=== PATIENT | female | born 1940 | race Caucasian/White ===

== ENCOUNTER 2021-01-29 10:33 | Inpatient (IN) | payer MEDICARE ==
[2021-01-29] MEDS ORDERED: Nitroglycerin 2% Ointment 1 INCH/1 GM Packet ONE (11:07)
[2021-01-29 11:46] LABS: #Eosinphils 0.1 10x3/uL (0.0-0.5); #Monocytes 0.5 10x3/uL (0.0-1.1); #Neutrophils 4.6 10x3/uL (1.5-8.4); %Basophils 0.7 % (0.0-2.0); %Eosinophils 2.3 % (0.0-6.0); %Lymphocytes 12.5 % (18.0-47.0); %Monocytes 8.2 % (0.0-10.0); Hemoglobin 13.5 g/dL (12.0-15.5); Mean Corpuscular Hemoglobin 28.7 pg (27.0-33.0); Mean Corpuscular Volume 86.8 fl (81.6-98.3); Mean Platelet Volume 10.4 fl (7.4-10.4); Platelet Count 252 10x3/uL (150-450); RBC Distribution Width 13.2 % (11.5-14.5); Red Blood Cell (RBC) Count 4.71 10x6/uL (3.90-5.03)
[2021-01-29 12:03] LABS: ALT (SGPT) 12 U/L (8-55); AST (SGOT) 19 U/L (5-34); Albumin 4.2 g/dL (3.4-4.8); Alkaline Phosphatase 86 U/L (40-110); Anion Gap 15 mmol/L (10-20); BUN (Urea Nitrogen) 10 mg/dL (9.8-20.1); Bilirubin, Total 0.4 mg/dL (0.2-1.2); CK (CPK) 80 U/L (29-168); Calc. Creatinine Clearance 0 mL/min (70-130); Calcium 9.1 mg/dL (7.8-10.44); Carbon Dioxide 24 mmol/L (23-31); Chloride 93 mmol/L (98-107); Globulin 3.8 g/dL (2.4-3.5); Glucose 95 mg/dL (83-110); Potassium 4.3 mmol/L (3.5-5.1); Sodium 128 mmol/L (136-145)
[2021-01-29 12:06] LABS: PTT 25.2 sec (22.0-33.0); Prothrombin Time 10.9 sec (9.5-12.1)
[2021-01-29] MEDS ORDERED: Aspirin Chewable 81 MG TAB ONE (14:05)
[2021-01-29] MEDS ORDERED: hydrALAZINE 20 MG/ML VIAL SLOW IVP PRN (15:00)
[2021-01-29 15:11] VITALS: BMI 23.9
[2021-01-29] MEDS ORDERED: Sodium Chloride 0.9% 1,000 ML IV SCH (16:45)
[2021-01-29] MEDS: Atorvastatin Calcium 40 MG TAB PO SCH (20:21)
[2021-01-29] MEDS: CARBAMAZEPINE 300 MG PO SCH (20:22)
[2021-01-29] MEDS: Gabapentin 300 MG CAP PO SCH (20:22)
[2021-01-30 05:07] LABS: #Eosinphils 0.2 10x3/uL (0.0-0.5); #Monocytes 0.5 10x3/uL (0.0-1.1); #Neutrophils 2.8 10x3/uL (1.5-8.4); %Basophils 0.9 % (0.0-2.0); %Eosinophils 4.1 % (0.0-6.0); %Lymphocytes 18.7 % (18.0-47.0); %Monocytes 12.4 % (0.0-10.0); %Neutrophils 63.7 % (40.0-75.0); Hemoglobin 12.3 g/dL (12.0-15.5); Mean Corpuscular HGB CONC 33.3 g/dL (32.0-36.0); Mean Corpuscular Hemoglobin 28.5 pg (27.0-33.0); Mean Corpuscular Volume 85.6 fl (81.6-98.3); Mean Platelet Volume 10.3 fl (7.4-10.4); Platelet Count 245 10x3/uL (150-450); RBC Distribution Width 13.1 % (11.5-14.5); Red Blood Cell (RBC) Count 4.31 10x6/uL (3.90-5.03); White Blood Cell (WBC) Count 4.3 10x3/uL (3.5-10.5)
[2021-01-30 05:28] LABS: Anion Gap 12 mmol/L (10-20); BUN (Urea Nitrogen) 10 mg/dL (9.8-20.1); Calc. Creatinine Clearance 57 mL/min (70-130); Calcium 8.7 mg/dL (7.8-10.44); Carbon Dioxide 25 mmol/L (23-31); Cardiac Risk 2.2 (Less than 4.5); Chloride 97 mmol/L (98-107); Cholesterol 222 mg/dl (< 200 Desired); Glucose 91 mg/dL (83-110); HDL Cholesterol 102 mg/dL (>60 Neg Risk); LDL Cholesterol, Calculated 106 mg/dL; Potassium 3.8 mmol/L (3.5-5.1); Sodium 130 mmol/L (136-145); Triglycerides 71 mg/dL (Less than 150)
[2021-01-30 06:59] LABS: SARS-CoV-2 PCR by NAA Not Detected (NotDetected)
[2021-01-30] MEDS ORDERED: Aspirin 325 mg Enteric Coated Tablet PO SCH (09:00)
[2021-01-30] MEDS: Enoxaparin Sodium 40 MG/0.4 ML SYRINGE SC SCH ×2 (09:24→10:00)
[2021-01-30] MEDS: Clopidogrel Bisulfate 75 MG TAB PO SCH (09:24)
[2021-01-30] MEDS: Aspirin 81 mg Enteric Coated Tablet PO SCH (09:24)
[2021-01-30] MEDS: Gabapentin 300 MG CAP PO SCH ×2 (09:24→21:11)
[2021-01-30] MEDS: Amlodipine 5 MG TAB PO SCH (09:24)
[2021-01-30] MEDS: CARBAMAZEPINE 300 MG PO SCH ×2 (09:48→21:14)
[2021-01-30] MEDS: Atorvastatin Calcium 40 MG TAB PO SCH (21:11)
[2021-01-31] MEDS: Gabapentin 300 MG CAP PO SCH (09:33)
[2021-01-31] MEDS: Clopidogrel Bisulfate 75 MG TAB PO SCH (09:34)
[2021-01-31] MEDS: Enoxaparin Sodium 40 MG/0.4 ML SYRINGE SC SCH (09:35)
[2021-01-31] MEDS: Aspirin 81 mg Enteric Coated Tablet PO SCH (09:35)
[2021-01-31] MEDS: Amlodipine 5 MG TAB PO SCH (09:35)
[2021-01-31] MEDS: CARBAMAZEPINE 300 MG PO SCH (09:35)
[2021-01-31] MEDS ORDERED: hydrALAZINE 20 MG/ML VIAL SLOW IVP PRN (13:53)
[2021-01-31] MEDS: Carvedilol 12.5 MG TAB PO SCH ×2 (14:29→16:44)
[2021-01-31] MEDS ORDERED: hydrALAZINE 25 MG TAB PO SCH (15:00)
[2021-01-31 17:23] VITALS: TEMP 98.2
[2021-01-31 18:35] VITALS: BP 155/79
== END 2021-01-31 18:30 | disposition home or self-care (01) | DRG 65 ==
LOC: CSHERS 10:33 → CSHTELE 13:45
PROVIDERS: ADMIT Hospitalist; ATTEND Hospitalist
DX: I63.81 Other cerebral infarction due to occlusion or stenosis of small artery (principal); E87.1 Hypo-osmolality and hyponatremia; Z20.822 Contact with and (suspected) exposure to COVID-19; G83.24 Monoplegia of upper limb affecting left nondominant side; G50.0 Trigeminal neuralgia; I16.0 Hypertensive urgency; Z91.012 Allergy to eggs; Z91.011 Allergy to milk products; Z91.018 Allergy to other foods; Z79.82 Long term (current) use of aspirin; Z79.899 Other long term (current) drug therapy; R29.810 Facial weakness; E78.5 Hyperlipidemia, unspecified; G62.9 Polyneuropathy, unspecified
CPT/HCPCS: 0439T; 36416; 70450; 70553; 71045; 80048; 80053; 80061; 82550; 83605; 84443; 84484; 85025; 85610; 85730; 87635; 93005; 93306; 93880; 94760; J1650; U0003; U0005